=== PATIENT | female | born 1945 | race African-American/Black ===

== ENCOUNTER → 2016-12-26 | Outpatient (CLI) | payer MEDICARE, OTHER ==
[~2016-12-26] MED LIST: NORCO 5-325 TA1 EACH PO; PRILOSEC 20 MG20 MG PO; SINGULAIR
== END ==
LOC: RAD 04:05 → SPEECH 04:05 → RAD 11:39
DX: R13.13 Dysphagia, pharyngeal phase (principal)

== ENCOUNTER → 2018-12-29 | Outpatient (CLI) | payer MEDICARE | LOC: RAD 08:01 | DX: I77.810 Thoracic aortic ectasia (principal); R06.02 Shortness of breath ==

== ENCOUNTER → 2020-10-26 | Outpatient (CLI) | payer MEDICARE | LOC: RAD 12:18 | PROVIDERS: ATTEND Pediatrics | DX: J45.30 Mild persistent asthma, uncomplicated (principal) ==

== ENCOUNTER → 2020-11-17 | Outpatient (CLI) | payer MEDICARE | LOC: CAT 09:51 | PROVIDERS: ATTEND Internal Medicine Pulmonary Disease | DX: J43.8 Other emphysema (principal); R91.8 Other nonspecific abnormal finding of lung field; J84.10 Pulmonary fibrosis, unspecified; K44.9 Diaphragmatic hernia without obstruction or gangrene; J98.4 Other disorders of lung; J47.9 Bronchiectasis, uncomplicated; R76.8 Other specified abnormal immunological findings in serum; J30.1 Allergic rhinitis due to pollen; K21.9 Gastro-esophageal reflux disease without esophagitis; E66.9 Obesity, unspecified; Z86.711 Personal history of pulmonary embolism ==